=== PATIENT | male | born 1995 | race Asian ===

== ENCOUNTER 2018-02-07 07:54 | Emergency (ER) | payer OTHER ==
[~2018-02-07] VITALS: Ht 175.3 cm; Wt 68.0 kg
[2018-02-07 08:00] VITALS: BP 147/78; TEMP 98.4
== END 2018-02-07 08:19 | disposition home or self-care (01) ==
LOC: ED 07:54
DX: J00 Acute nasopharyngitis [common cold] (principal); R05 Cough
CPT/HCPCS: 99281

== ENCOUNTER 2021-01-06 08:15 | Emergency (ER) | payer OTHER ==
[~2021-01-06] VITALS: Ht 175.3 cm; Wt 68.0 kg
[2021-01-06 08:19] VITALS: BP 140/57; TEMP 97.2
== END 2021-01-06 08:57 | disposition home or self-care (01) ==
LOC: ED 08:15
DX: S90.31XA Contusion of right foot, initial encounter (principal); S99.821A Other specified injuries of right foot, initial encounter; Y93.39 Activity, other involving climbing, rappelling and jumping off; Y92.89 Other specified places as the place of occurrence of the external cause
CPT/HCPCS: 99282